=== PATIENT | male | born 1955 | race Hispanic/Latino ===

== ENCOUNTER → 2020-05-12 | Outpatient (CLI) | payer OTHER ==
[~2020-05-12] MED LIST: IOPAMIDOL 300MG/ML 100 ML INFUS..BTL IV ONE
--- NOTE | 2020-05-12 12:58 | Diagnostic Imaging Report ---
Retrograde urethrogram History: Urethral stricture. Fluoroscopy time: 0.5 minutes Radiation dose: 13.2 mGy air Kerma Technique: Kiln Remover. Sterile prep and drape of the genital area. Sterile catheterization of the urethral meatus with HSG catheter with balloon inflated and retracted to create a seal at the medial disc. Isovue 307 cc injected under intermittent fluoroscopy. Fluoroscopic screen catheters and photospot images in different fluoroscopic projections obtained. At the end of the procedure, the balloon deflated and the catheter withdrawn. Findings: Unremarkable ripsawyer. Approximately 3 cm tight stricture in the posterior part of the penile urethra. The contrast did not travel into the membranous or prostatic urethra. Impression: Stricture of the penile urethra as described above. Signed by: Surjit Rodriguez MD on 05/12/2020 12:55 PM
== END ==
LOC: DX 11:19
PROVIDERS: ATTEND Urology
DX: N35.919 Unspecified urethral stricture, male, unspecified site (principal)
CPT/HCPCS: 74450; Q9967

== ENCOUNTER → 2020-06-18 | Day surgery (SDC) | payer OTHER ==
[2020-06-16 14:06] LABS: BLOOD UREA NITROGEN 14 mg/dL (7-26); BUN/CREATININE RATIO 14 (6-25); CALCIUM 9.2 mg/dL (8.4-10.2); CARBON DIOXIDE 24 mmol/L (22-29); CHLORIDE 106 mmol/L (98-107); CREATININE, SERUM 1.02 mg/dL (0.72-1.25); EST GLOMERULAR FILTRATION RATE > 60 ML/MIN (60-); GLUCOSE 108 mg/dL (74-118); SODIUM 140 mmol/L (136-145)
[~2020-06-18] MED LIST changes: +B&O 60MG R/S 60 MG SUPP PR ONE; +BENICAR20 MG PO; +CEFAZOLIN SOD 1 GM/NS 50ML 50 ML IV ONE; +DEXAMETHASONE SOD PHOS INJ 4 MG/ML VIAL ONE; +FENTANYL CITRATE/PF 100MCG/2 ML INJ ONE; -IOPAMIDOL 300MG/ML 100 ML INFUS..BTL IV ONE; +IOPAMIDOL 300MG/ML 50ML INFUS..BTL IV ONE; +LIDOCAINE HCL 2% JELLY 5 ML TUBE ONE; +LIDOCAINE HCL 2% LOCAL INJ 5 ML SDV VIAL INJ ONE; +MIDAZOLAM HCL 2 MG/2 ML VIAL ONE; +OLMESARTAN-HCT1 EAC1 PO; +ONDANSETRON HCL INJ 2MG/ML 2ML 2 MG/ML VIAL ONE; +PROPOFOL IV EMULSION 10 MG/ML 20 ML VIAL ONE; +SEVOFLURANE INHAL SOLN 250 ML PEN BTL ONE
[2020-06-18 12:15] VITALS: BP 126/76
== END | disposition home or self-care (01) ==
LOC: OR 09:09
PROVIDERS: ATTEND Urology
DX: N35.919 Unspecified urethral stricture, male, unspecified site (principal); N32.89 Other specified disorders of bladder; I10 Essential (primary) hypertension; Z01.810 Encounter for preprocedural cardiovascular examination; Z01.812 Encounter for preprocedural laboratory examination; Z20.828 Contact with and (suspected) exposure to other viral communicable diseases
CPT/HCPCS: 36415; 52005; 52276; 74450; 80048; 93005; C1758; J0690; J1100; J2001 ×2; J2405; J2704; J3010; Q9967; U0002